=== PATIENT | male | born 1965 ===

== ENCOUNTER 2019-10-23 07:48 | Outpatient (CLI) | payer BC, SELFPAY ==
--- NOTE | 2019-10-25 13:04 | SLEEP_ITS ---
Home Sleep Test DATE OF STUDY: 10/23/2019 ORDERING PHYSICIAN: Raudel Qureshi MD. REASON FOR THIS STUDY: Obstructive sleep apnea. HISTORY: This patient is a 54-year-old male, 5 feet 8 inches tall weighing 230 pounds with a body mass index of 34.9. He has severe snoring, has a hard time staying awake during the day and never feels like he has a good night of sleep. He had a sleep study about 7 years ago showing severe sleep apnea and used CPAP for years. His machine broke. Currently, he asked to have a repeat study to qualify for CPAP. His says he snores loudly. He talks in his sleep and he is restless with kicking and movement all night. He constantly snores loudly enough that others complain about it. He occasionally awakens at night with heartburn, belching, or coughing. He occasionally awakens from sleep feeling short of breath. He occasionally has trouble sleeping with a cold, frequently wakes up gasping for breath at night, constantly has breathing problems witnessed by others. He occasionally sweats excessively at night, occasionally notices his heart pounding or beating irregularly at night, frequently falls asleep during the day, frequently involuntarily, rarely while driving, never with physical effort. He does not have loss of muscle tone with strong emotion. He occasionally has daytime difficulty due to excessive sleepiness. He does not feel paralyzed on waking or falling asleep. He occasionally has vivid dreamlike scenes upon awakening or falling asleep. He frequently has nightmares. He rarely remembers his dreams. He does not have racing thoughts, feelings of sadness, depression or anxiety. He rarely has muscular tension. He occasionally notices parts of his body jerking. He constantly kicks at night. He rarely has crawly achy feelings in his legs or leg pain at night. He occasionally has morning jaw pain, rarely grinds his teeth at night. He occasionally is bothered by pain during the day. He has never awakened by pain at night, does not wake up feeling stiff in the morning with sore achy muscles or pain in the neck and spine. He has headaches, nightmares, and concentration difficulties. He normally goes to bed between 8 and 9 p.m., falling asleep quickly, waking 3 to 5 times at night to roll over, switched sides or go to the bathroom. Sometimes, he simply sits up. He wakes up in the morning between 4:40 and 5:00 a.m. On the weekends, he goes to bed 2 hours later and wakes up 4 to 5 hours later. He sometimes takes a nap. Naps are not refreshing. He is drowsy in the morning for 3 hours or longer. He feels better in the afternoons and the morning. MEDICAL COMORBIDITIES: 1. Depression. 2. Chronic lumbar pain. 3. Constipation. 4. Low testosterone. 5. Obstructive sleep apnea syndrome. 6. Hypothyroidism. CURRENT MEDICATIONS: 1. Paxil 40 mg a day. 2. [place] 7.5/325 one tablet 4 times a day for low back pain. HABITS: Chewing tobacco daily. Diet soda daily. No alcohol. DESCRIPTION OF THE STUDY: On the [place] Sleepiness Scale, the score is 18, elevated. This was conducted as an unattended type 3 portable home sleep test with 4 channel monitoring including respiratory effort channel, snoring channel, oxygen saturation channel, and heart rate channel. This study was scored using CMS guidelines. Duration of the study was 7 hours 32 minutes. The apnea-hypopnea index is 56, elevated. Oxygen desaturation index is 50. He had 241 apneas. The majority 53% or 127 were obstructive, 18% or 43 apneas were central and 29% or 71 apneas were mixed. He had 177 hypopneas. He had 2453 snoring events and desaturated 412 times spending 77 minutes, 16% of the study below 88% saturation. Minimum saturation was 73%. Baseline saturation 9
== END 2019-10-23 07:49 | disposition home or self-care (01) ==
LOC: ANHCSM 07:49
PROVIDERS: Visit Provider Internal Medicine
DX: G47.33 Obstructive sleep apnea (adult) (pediatric) (principal)
CPT/HCPCS: 95806